=== PATIENT | female | born 1955 | race Caucasian/White ===

== ENCOUNTER → 2021-04-06 | Outpatient (CLI) | payer MEDICARE, BC | END | disposition home or self-care (01) | LOC: CFH 08:49 | PROVIDERS: ATTEND Nurse Practitioner Family | DX: Z12.2 Encounter for screening for malignant neoplasm of respiratory organs (principal); K80.20 Calculus of gallbladder without cholecystitis without obstruction; E04.2 Nontoxic multinodular goiter; Z87.891 Personal history of nicotine dependence | CPT/HCPCS: 71271 ==

== ENCOUNTER → 2021-06-06 | Outpatient (CLI) | payer MEDICARE, BC ==
[~2021-06-06] MED LIST: REGADENOSON 0.4 MG/5 ML SYRINGE ONE
== END | disposition home or self-care (01) ==
LOC: CFH 12:21
PROVIDERS: ATTEND Internal Medicine Cardiovascular Disease
DX: I25.9 Chronic ischemic heart disease, unspecified (principal); I25.10 Atherosclerotic heart disease of native coronary artery without angina pectoris; I63.9 Cerebral infarction, unspecified; I71.2 Thoracic aortic aneurysm, without rupture
CPT/HCPCS: 78452; 93017; A9502; J2785

== ENCOUNTER 2021-06-15 13:59 | Outpatient (CLI) | payer MEDICARE, BC | END 2021-06-15 23:59 | disposition home or self-care (01) | LOC: CVU 13:59 | PROVIDERS: ATTEND Internal Medicine Cardiovascular Disease | DX: I05.1 Rheumatic mitral insufficiency (principal); I65.23 Occlusion and stenosis of bilateral carotid arteries; I63.9 Cerebral infarction, unspecified; I25.10 Atherosclerotic heart disease of native coronary artery without angina pectoris; I71.2 Thoracic aortic aneurysm, without rupture; I11.9 Hypertensive heart disease without heart failure | CPT/HCPCS: 93306; 93880 ==

== ENCOUNTER 2021-06-27 06:46 | Day surgery (SDC) | payer MEDICARE, BC ==
[~2021-06-27] VITALS: Ht 162.6 cm; Wt 85.0 kg
[2021-06-27 07:35] VITALS: BP 104/64
[2021-06-27] MEDS ORDERED: FOLI0.8T5 PO (07:47)
[2021-06-27] MEDS ORDERED: MAGN400T36 PO (07:47)
[2021-06-27] MEDS ORDERED: APIX5TAB PO (07:47)
[2021-06-27] MEDS ORDERED: HYDROCHLOROTH12.5 MG PO (07:47)
[2021-06-27] MEDS ORDERED: UBID100C24 PO (07:47)
[2021-06-27] MEDS ORDERED: CALC-112 PO (07:47)
[2021-06-27] MEDS ORDERED: ATOR40TA PO (07:47)
[2021-06-27] MEDS ORDERED: APRE30TA2 PO (07:47)
[2021-06-27] MEDS ORDERED: CARV3.1212 PO (07:47)
[2021-06-27 07:54] LABS: BASOPHILS % (AUTO) 1 % (0-1); EOSINOPHILS % (AUTO) 3 % (1-7); LYMPHOCYTES % (AUTO) 27 % (22-44); MEAN CORPUSCULAR HEMOGLOBIN 27.2 pg (27.0-34.8); MEAN CORPUSCULAR HGB CONC 32.8 g/dL (32.4-35.8); MEAN PLATELET VOLUME 8.1 fL (7.4-10.4); MONOCYTES % (AUTO) 11 % (2-9); NEUTROPHILS % (AUTO) 59 % (42-75); PLATELET COUNT 259 x10^3/uL (130-400); RED BLOOD COUNT 4.65 x10^6/uL (3.82-5.3); RED CELL DISTRIBUTION WIDTH 16.7 % (9.6-15.2)
[2021-06-27 08:05] LABS: ANION GAP 6 mmol/L (5-15); CALCIUM 9.6 mg/dL (8.5-10.1); CHLORIDE 106 mmol/L (98-107)
[2021-06-27] MEDS ORDERED: FENTANYL PF 100 MCG/2ML ONE (08:29)
[2021-06-27] MEDS ORDERED: MIDAZOLAM 1 MG/ML, 5ML ONE (08:29)
[2021-06-27] MEDS ORDERED: VERAPAMIL 2.5 MG/ML, 2ML ONE (08:30)
[2021-06-27] MEDS ORDERED: HEPARIN 1,000 UNITS/ML, 10ML ONE (08:30)
[2021-06-27] MEDS ORDERED: LIDOCAINE-MPF 1%, 5ML ONE (08:30)
[2021-06-27] MEDS ORDERED: SODIUM CHLORIDE 0.9% 1,000 ML IV SCH ×2 (10:00→11:00)
== END 2021-06-27 11:54 | disposition home or self-care (01) ==
LOC: OUT 06:46 → CACL 11:54
PROVIDERS: ATTEND Internal Medicine Cardiovascular Disease
DX: R94.39 Abnormal result of other cardiovascular function study (principal); I25.10 Atherosclerotic heart disease of native coronary artery without angina pectoris; I48.0 Paroxysmal atrial fibrillation; I10 Essential (primary) hypertension; E78.00 Pure hypercholesterolemia, unspecified; I69.354 Hemiplegia and hemiparesis following cerebral infarction affecting left non-dominant side; E11.9 Type 2 diabetes mellitus without complications; Z79.01 Long term (current) use of anticoagulants; Z79.899 Other long term (current) drug therapy; Z87.891 Personal history of nicotine dependence; Z88.0 Allergy status to penicillin; Z88.8 Allergy status to other drugs, medicaments and biological substances; Z80.1 Family history of malignant neoplasm of trachea, bronchus and lung; Z82.49 Family history of ischemic heart disease and other diseases of the circulatory system
CPT/HCPCS: 36415; 80048; 85025; 93458; 99156; C1769; C1894; J1644; J2250; J3010; Q9967